=== PATIENT | male | born 1935 | race Caucasian/White ===

== ENCOUNTER 2017-07-26 10:02 | Emergency (ER) | payer MEDICARE ==
[~2017-07-26] VITALS: Ht 167.6 cm; Wt 95.3 kg
--- NOTE | 2017-07-26 10:02 | NUR ---
Pt arrived w/ paramedics while CPR in progress and intubation in place. pt is inresponsive. placed pt on gurney and continue. Please see Code Blue sheet for more info.
[2017-07-26] MEDS ORDERED: ATROPINE SULFATE 1 MG/10 ML DISP.SYRIN IV ONE (10:03)
--- NOTE | 2017-07-26 10:18 | NUR ---
PRONOUNCED BY DR SMITH AT 10:110AM.
--- NOTE | 2017-07-26 10:20 | NUR ---
Pt's family at the bedside. Brodie(public health social worker) and Dr romeo speaking to pt.
--- NOTE | 2017-07-26 10:40 | NUR ---
Dr Nelson pt's PMD notified bt Dr Read.
--- NOTE | 2017-07-26 10:44 | NUR ---
Dr Aparicio(pt's physical education instructor), spoke to Dr Read, and Pt's .
--- NOTE | 2017-07-26 10:45 | NUR ---
Called [facility] and spoke to Laura. Referal number [phone].
--- NOTE | 2017-07-26 10:55 | NUR ---
Recieved call from terence from [facility] decline pt due to advance age.
--- NOTE | 2017-07-26 12:10 | NUR ---
[facility] called for body slat pickler. ETA 2 hours.
--- NOTE | 2017-07-26 12:31 | NUR ---
All pt's belonging given to pt's son Armani Cabrera.
--- NOTE | 2017-07-26 13:51 | NUR ---
Pt's body picked up by [facility]. Paper signed by Rep. Ang Caldwell aware and present.
--- NOTE | 2017-07-26 13:55 | NUR ---
Upon patient's 's and son Armani arrival, this [place] and Dr. Read met with them. After Dr. Read spoke with family and informed them of patient's passing. SW provided grief support. and son asked to see patient and SW escorted them to patient's assigned room to be with him. SW asked patient's and son if there was anyone SW could help them contact, and son stated that he was already contacting the necessary individuals. Chairs and coffee cart provided, and SW provided them with privacy. About 20 minutes later, SW checked on patient's family, who expressed wanting to continue to stay with the a bit longer. SW supported their request, however inquired about mortuary arrangements. Patient's son Armani stated that they had arrangements made at [facility]. SW informed patient's RN Joan.
== END 2017-07-26 13:55 | disposition expired ==
LOC: ER 10:02
DX: I46.9 Cardiac arrest, cause unspecified (principal)
CPT/HCPCS: 70030-TC; A4663; J0461